=== PATIENT | female | born 1960 | race Caucasian/White ===

== ENCOUNTER 2017-04-07 08:35 | Day surgery (SDC) | payer OTHER, BC ==
[~2017-04-07] VITALS: Ht 162.6 cm; Wt 113.4 kg
[~2017-04-07 08:35] MED LIST: ADVAIR 250/501 DISK IH; HYDROCODON-ACE1 EAC7 PO; LEVO-T200 MCG PO; MOTRIN800 MG PO; NEURONTIN300 MG PO; POTASSIUM-9999 MG PO; PROAIR HFA8.5 GM IH; PROVENTIL,2.5 MG/3 M IH; SINGULAIR10 MG PO; VENTOLIN HFA18 GM IH; WOMEN'S DAILY1 EAC2 PO
== END 2017-04-07 09:53 | disposition home or self-care (01) ==
LOC: PAIN 08:35 → SDC 09:15 → PAIN 09:53
DX: M54.16 Radiculopathy, lumbar region (principal); Z53.09 Procedure and treatment not carried out because of other contraindication
CPT/HCPCS: J1100; J2250; J3010